=== PATIENT | female | born 1965 | race Two or more races ===

== ENCOUNTER → 2018-11-26 | Outpatient (CLI) | payer OTHER | LOC: BRMIMAGING 11:03 | PROVIDERS: ATTEND Internal Medicine | DX: M06.071 Rheumatoid arthritis without rheumatoid factor, right ankle and foot (principal); M06.072 Rheumatoid arthritis without rheumatoid factor, left ankle and foot; M12.841 Other specific arthropathies, not elsewhere classified, right hand; M12.842 Other specific arthropathies, not elsewhere classified, left hand | CPT/HCPCS: 73130-PO; 73630-PO ==